=== PATIENT | female | born 1945 | race Caucasian/White ===

== ENCOUNTER 2017-05-18 09:17 | Inpatient (IN) ==
[2017-05-18] MEDS ORDERED: DILTIAZEM 50 MG/10 ML VIAL IV STA (10:02)
--- NOTE | 2017-05-18 10:05 | EKG Report ---
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
[2017-05-18 10:24] LABS: Apearance,Urine CLEAR (Clear); Bacteria,Urine Moderate /HPF (Few); Bilirubin,Urine Negative (Negative); Blood, Urine Negative (Negative); Glucose,Urine (UA) Negative (Negative); Ketones,Urine Negative (Negative); Mucus,Urine Occasional /LPF (Occasional); Nitrite,Urine Negative (Negative); Protein,Urine Negative; RBC,Urine <1 /HPF (0-4); Urine Color Yellow (Yellow); Urine Urobilinogen < 2.0 EU/DL (0.2-1.0); WBC,Urine 1 /HPF (0-6)
[2017-05-18 10:31] LABS: Barbiturates Screen,Urine Negative (Negative); Benzodiazepines Screen,Urine Negative (Negative); Cannabinoid Screen,Urine Negative (Negative); Opiate Screen,Urine Positive (Negative); Phencyclidine Screen,Urine Negative (Negative)
--- NOTE | 2017-05-18 10:45 | CT Report ---
History: Mental status changes Date: 05/18/2017 Study: CT head without contrast Comparison exam: May 15, [address] sections were obtained through the head without IV contrast. This CT exam was performed using one or more the following dose reduction techniques: Automated exposure control, adjustment of the MA and/or KV according to patient size, or use of iterative reconstruction technique. The ventricles are midline in position without evidence of hydrocephalus. There is mild diffuse cerebral atrophy. There is no mass or parenchymal hemorrhage. There is no gross CT evidence of acute cortical stroke. There is a small amount of ill-defined low density in the periventricular white matter without mass effect compatible with changes of small vessel disease. There is no extra-axial hematoma. There is mild distal carotid artery calcification. There is no acute abnormality of the calvarium. There is a very small left frontal scalp lipoma as before. Impression: No acute intracranial process compared to the previous study. Mild periventricular small vessel disease. PROCEDURE INTERPRETED AT [facility] DEPARTMENT OF RADIOLOGY Final Report Signed by: Dr. Yany Conde
[2017-05-18] MEDS ORDERED: NALOXONE 0.4 MG/ML VIAL IV STA (10:46)
[2017-05-18 10:47] LABS: Albumin 3.6 G/DL (3.4-5.0); Bilirubin,Total 0.7 MG/DL (0.2-1.0); Calcium 8.7 MG/DL (8.5-10.1); Magnesium 2.4 MG/DL (1.8-2.4); Osmolality,Calculated 281.4 MOS/KG (273-304); Total Protein 6.9 G/DL (6.4-8.3)
[2017-05-18] MEDS ORDERED: NALOXONE 0.4 MG/ML VIAL ONE (10:47)
--- NOTE | 2017-05-18 10:52 | XRay Report ---
History: Altered mental status Date: 05/18/2017 Study: Chest x-ray AP portable Comparison exam: May 15, 2016 There is stable mild cardiomegaly. There is no mediastinal mass. There is mild to moderate aortic arch calcification. The pulmonary vasculature is not engorged. Scattered emphysematous changes are noted in the lungs. There is some mild chronic reticular interstitial disease in the lung bases. There is no definite acute infiltrate. There is no layering pleural effusion. There is a stable pleural-based sessile area in the right upper hemithorax laterally which has been present since March 15, 2010 chest x-ray and is grossly similar in size. There is osteopenia and mild thoracic spondylosis. Impression: Chronic lung disease. No definite acute process. Stable sessile pleural thickening laterally in the right lung apex, unchanged since March 15, 2010 and therefore presumably benign PROCEDURE INTERPRETED AT [facility] DEPARTMENT OF RADIOLOGY Final Report Signed by: Dr. Yany Conde
[2017-05-18 11:06] LABS: Basophils # 0.1 10*3/uL (0.0-0.2); Basophils % 0.4 % (0.0-0.8); Eosinophils # 0.1 10*3/uL (0.0-0.87); Eosinophils % 0.7 % (0.00-10.9); Hematocrit 47.5 VOL% (35.7-47.0); Hemoglobin 16.2 GM/DL (12.0-16.0); Lymphocytes % 11.1 % (21.3-54.2); Mean Corpuscular HGB Conc 34.1 GM/DL (32-36); Mean Corpuscular Hemoglobin 30 PG (27-34); Mean Corpuscular Volume 87.8 FL (87-102); Mean Platelet Volume 9.2 FL (9.6-12.0); Monocytes % 5.5 % (1.7-12.7); Neutrophils # 13.9 10*3/uL (1.4-7.4); Neutrophils % 77.3 % (38.7-73.9); Platelet Count 251 T/CUMM (130-400); Red Blood Count 5.41 MC/CUMM (3.8-5.5); Red Cell Distribution Width 17.5 % (9.3-17.3)
--- NOTE | 2017-05-18 11:21 | Emergency Department Note ---
Rayshawn Stringer Brittany, am scribing for, and in the presence of, Francisco Javier Hidalgo MD 10:28. Gwen Stringer Phillip K, MD, personally performed the services described in this documentation, ascribed by Kendy Tabares in my presence, and it is both accurate and complete . Arrival - Arrival Chief Complaint: Altered Mental Status Stated Complaint: altered LOC ED Nursing Triage Note: Brought in by EMS-sent from [facility] for further evaluation of altered LOC-onset this morning. Staff reports patient "went unresponsive" while sitting in the break room this morning after receiving AM dose of [place]. EMS reports that patient was unresponsive upon their arrival, awakened after Narcan 0.8mg IV. Combative at time of triage. Mode of Arrival: Stretcher Limitations: Altered Mental Status Source: EMS Time Seen by Provider: 05/18/17 09:53 - History of Present Illness HPI Narrative: This will be limited secondary to pt's current mental status. This is a 71 y/o white female,who presents to the ED by EMS for further neurologic evaluation. Pt is a current resident of [facility]. Staff reports pt was out on a "weekend pass" with family and came back to the halfway 05/15. She became unresponsive earlier today after receiving her normal AM dose of [place]. EMS gave pt Narcan 0.8 IV. During exam and traige, pt is combative. Upon arrival to the ED, pt's accucheck is 97. There are no other complaints/pain in the ED at this time. Pt has a PMHx of HTN, depression, NIDDM, GERD, OA, anemia, degernerative disk disease, back/neck problems, and GI problems. Pt has had an EGD and total hip replacement. Pt has a family medical Hx of diabetes. Onset (ago): hour(s) (Started earlier this morning) Consistency: constant Severity: moderate Date of Last Menstrual Period: susan Allergies/Adverse Reactions: Allergies Allergy/AdvReac Type Severity Reaction Status Date / Time Sulfa (Sulfonamide Allergy Intermediate RASH Verified 04/02/15 11:53 Antibiotics) Home Medications: Home Medications Medication Instructions Recorded Confirmed Type Acetaminophen [Acetaminophen ER] 650 mg PO Q6H PRN 05/18/17 05/18/17 History Albuterol Neb [Proventil Neb] 2.5 mg RESP TX Q6HR 05/18/17 05/18/17 History Albuterol Sulfate [Proair HFA] 1 puff INH Q4H PRN 05/18/17 05/18/17 History Alendronate [Fosamax] 70 mg PO MO 05/18/17 05/18/17 History Beclomethasone 80 Mcg Inhaler 1 puff INH BID 05/18/17 05/18/17 History [Qvar 80 Mcg] Calcium (Carb)/Vit D 600-400 1 tablet PO BID 05/18/17 05/18/17 History [Caltrate 600 + D] Erythromycin Base [Erythromycin 1 drop BOTH EYES BEDTIME 05/18/17 05/18/17 History 0.5% Oph Oint] Esomeprazole Magnesium 40 mg PO BEDTIME 05/18/17 05/18/17 History [Esomeprazole] Ferrous Sulfate 325 mg PO BID 05/18/17 05/18/17 History HYDROcodone/ACETAMIN 5-325 [Deerfield 1 tablet PO BID PRN 05/18/17 05/18/17 History 5-325] HYDROcodone/ACETAMIN 5-325 [[place] 1 tablet PO Q6H 05/18/17 05/18/17 History 5-325] Ibuprofen Tab [Motrin Tab] 400 mg PO Q6H PRN 05/18/17 05/18/17 History Megestrol Acetate 400 mg PO 0800 05/18/17 05/18/17 History Melatonin 3 mg PO BEDTIME 05/18/17 05/18/17 History Menthol/Camphor [Icy Hot Advanced 1 applic TOP TID 05/18/17 05/18/17 History Relief Cream] Multivitamin with Minerals 1 each PO 0800 05/18/17 05/18/17 History [Multivitamins with Minerals] guaiFENesin LIQUID [Robitussin] 10 ml PO Q6H PRN 05/18/17 05/18/17 History predniSONE TAB [PredniSONE] 10 mg PO 0800 05/18/17 05/18/17 History Review of System - Review of System 12 point system: reviewed and no additional remarkable complaints except as stated - Review of System Neurological: Present: other (Altered LOC) Medical,Surgical,& Family Hx - Medical History Cardio: History of: Hypertension Psychological: History of: Depression Neurology: No history of: Seizures HEENT: History of: Eye Problem (ULCERS LEFT EYE) Endocrine: History of: Diabetes Mellitus (NIDDM) Respiratory: History of: Bronchitis, COPD, Pneumonia Gastrointestinal: History of: GERD, GI Problems (dysphagia, hx of ulcers) Musculoskeletal: History of: Back/Neck Problems, Degenerative Disk Disease, Osteoporosis Hematology: History of: Anemia - Surgical History Abdominal Surgeries: Surgical HX of: EGD (last egd and dil 08/10) Reproductive Surgeries: Patient denies;: Hysterectomy Orthopedic Surgeries: Surgical HX of;: Total Hip Replacement (HIP) - Family History Family History: Reports;: Family Diabetes - Social History Smoking Status: Unknown if ever smoked Frequency of Alcohol Use: Unknown Type of Drug Use: Unknown Exam Vital Signs: Vital Signs Temperature 97.6 F 05/18/17 09:26 Pulse Rate 146 H 05/18/17 09:26 Respiratory Rate 28 H 05/18/17 09:28 Blood Pressure 195/95 05/18/17 09:26 O2 Sat by Pulse Oximetry 99 05/18/17 09:26 - General General appearance: alert - Head Head exam: Present: atraumatic, normocephalic, normal inspection - Eye Eye exam: Present: PERRL - ENT ENT exam: Present: normal exam, normal oropharynx, mucous membranes moist, TM's normal bilaterally, normal external ear exam - Neck Neck exam: Present: normal inspection, full ROM, trachea midline. Absent: tenderness, meningismus, lymphadenopathy, thyromegaly - Chest Chest inspection: Present: normal inspection, symmetric chest wall rise. Absent : tenderness, rash, abscess - Respiratory Respiratory exam: Present: rales (Rales in the right base). Absent: respiratory distress, rhonchi, stridor, wheezes - Cardiovascular Cardiovascular exam: Present: regular rate, normal rhythm, normal heart sounds. Absent: murmur, rubs, gallop, clicks, JVD - Abdominal Exam Abdominal exam: Present: soft, normal bowel sounds. Absent: distention, tenderness, guarding, rebound, rigidity - Rectal Exam Rectal exam: Present: deferred - Extremities Exam Extremities exam: Present: normal inspection, full ROM, normal capillary refill , other (Moves all extremities). Absent: tenderness, pedal edema, joint swelling, calf tenderness - Back Exam Back exam: Present: normal inspection, full ROM. Absent: tenderness, muscle spasm, rashes - Neurological Exam Neurological exam: Present: alert. Absent: motor sensory deficit (Moves all four extremities but will not follow commands) - Skin Skin exam: Present: warm, dry, intact, normal color. Absent: rash, cyanosis, diaphoresis, erythema, pallor, mottled Course Course Narrative: Patient discussed with the hospitalist. Results - Labs CBC & BMP: 05/18/17 11:00 05/18/17 09:48 Lab Results: I have reviewed the patients labs Labs: Laboratory Tests 05/18/17 05/18/17 10:18 10:18 Urine Color Yellow Urine Appearance Clear Urine pH 6.0 Ur Specific Idamay 1.010 Urine Protein Negative Urine Glucose (UA) Negative Urine Ketones Negative Urine Blood Negative Urine Nitrate Negative Urine Bilirubin Negative Urine Urobilinogen < 2.0 H Urine Leukocytes Negative Urine RBC <1 Urine WBC 1 Urine Bacteria Moderate Urine Mucus Occasional Ur Culture Indicated? Not indicated Urine Opiates Screen Positive H Ur Barbiturates Screen Negative Ur Phencyclidine Scrn Negative U Amphetamine/Methamph Negative U Benzodiazepines Scrn Negative U Cocaine Metab Screen Negative U Cannabinoids Screen Negative Laboratory Tests 05/18/17 05/18/17 05/18/17 09:48 10:18 10:18 Sodium 140 Potassium 4.0 Chloride 105 Carbon Dioxide 25 Anion Gap 14.0 BUN 20 H Creatinine 0.70 GFR Calculation 69 BUN/Creatinine Ratio 28.00 H Glucose 96 Calculated Osmolality 281.4 Calcium 8.7 Magnesium 2.4 Total Bilirubin 0.70 AST 22 ALT 31 Alkaline Phosphatase 104 Total Protein 6.9 Albumin 3.6 Globulin 3.3 Albumin/Globulin Ratio 1.0 L Urine Color Yellow Urine Appearance Clear Urine pH 6.0 Ur Specific Idamay 1.010 Urine Protein Negative Urine Glucose (UA) Negative Urine Ketones Negative Urine Blood Negative Urine Nitrate Negative Urine Bilirubin Negative Urine Urobilinogen < 2.0 H Urine Leukocytes Negative Urine RBC <1 Urine WBC 1 Urine Bacteria Moderate Urine Mucus Occasional Ur Culture Indicated? Not indicated Urine Opiates Screen Positive H Ur Barbiturates Screen Negative Ur Phencyclidine Scrn Negative U Amphetamine/Methamph Negative U Benzodiazepines Scrn Negative U Cocaine Metab Screen Negative U Cannabinoids Screen Negative - EKG EKG results: interpreted by SPEEDYD (Sinus tachycardia) - Diagnostic Findings Procedure: Chest x-ray: report reviewed by me (Chronic lung disease. No definite acute process. Stable sessile pleural thickening laterally in the right lung apex, unchanged since March 15, 2010 and therefore presumably bengin. ), CT: report reviewed by me, pending (Head CT: No acute intracrainal process compared to the previous study. Mild periventricular small vessel disease. ) Disposition Clinical Impression: Altered mental status, Mild dehydration, Urinary tract infection Case discussed with: patient, patient's family Disposition: Still a Patient Condition: Guarded Additional Instructions: Admit to the hospitalist.
[2017-05-18 11:27] LABS: Band Neutrophils 1 % (0-10); Lymphocytes 9 % (20-55); Metamyelocytes 1 %; Segmented Neutrophils 82 % (50-85); Total Cells Counted 100
[2017-05-18 11:28] LABS: Hypochromasia 1+; Microcytosis 1+
--- NOTE | 2017-05-18 13:44 | Hospitalist History & Physical ---
<Jordan Jackson - Last Filed: 05/18/17 14:38> Assessment and Plan - Time spent with patient Time spent with patient: Less than 30 minutes (1) Altered mental status Status: Acute Assessment and plan: His CT is negative. Patient reportedly has been altered and unresponsive since her a.m. dose of [place]. She was treated with 0.8 mg of Narcan and became combative. Patient remains noncommunicative and in 2 point restraints. We will admit her for observation and further treatment. Consider neurology consult. Current Visit: No (2) Dehydration Status: Acute Assessment and plan: Aggressive IV fluid resuscitation. Current Visit: No (3) Leukocytosis Status: Acute Assessment and plan: WBC 18. Etiology is unclear. Urine culture was not indicated however we are checking a blood culture. We will start empiric broad-spectrum antibiotics. Current Visit: Yes (4) COPD with emphysema Status: Chronic Current Visit: No History of Present Illness Chief complaint: AMS History of present illness: Ms. Barrow is a 71 year old female with a past medical history of hypertension, depression, diabetes mellitus, GERD, osteoarthritis, anemia and degenerative joint disease who presents to the emergency room via EMS for further evaluation of altered mental status. Patient is noncommunicative and history is limited due to her current mental status. Per hospital records, patient is a current resident of [facility] and was reportedly out on a "weekend pass" with family this past weekend. Patient returned to the residential on Monday apparently in her normal state. However, today the patient became unresponsive after taking her usual dose of [place]. EMS was called and the patient was treated with 0.8 mg IV in route to the hospital. Patient reportedly became combative and is in two-point restraints in the emergency room. Lab values are as follows: WBC 18, hemoglobin 16.2, hematocrit 47.5, sodium 147 , potassium 4.0, chloride 105, BUN 20, creatinine 0.70, glucose 96. Urinalysis is unremarkable. Urine drug screen did come back positive for opiates. Chest x -ray chronic lung disease however no definite acute process. Head CT shows no acute intracranial process. This case has been discussed with Dr. Hidalgo, ER physician, and Dr. Raymond, admitting physician patient will be admitted for further evaluation and treatment. Home Medications Medication Instructions Recorded Confirmed Type Acetaminophen [Acetaminophen ER] 650 mg PO Q6H PRN 05/18/17 05/18/17 History Albuterol Neb [Proventil Neb] 2.5 mg RESP TX Q6HR 05/18/17 05/18/17 History Albuterol Sulfate [Proair HFA] 1 puff INH Q4H PRN 05/18/17 05/18/17 History Alendronate [Fosamax] 70 mg PO MO 05/18/17 05/18/17 History Beclomethasone 80 Mcg Inhaler 1 puff INH BID 05/18/17 05/18/17 History [Qvar 80 Mcg] Calcium (Carb)/Vit D 600-400 1 tablet PO BID 05/18/17 05/18/17 History [Caltrate 600 + D] Erythromycin Base [Erythromycin 1 drop BOTH EYES BEDTIME 05/18/17 05/18/17 History 0.5% Oph Oint] Esomeprazole Magnesium 40 mg PO BEDTIME 05/18/17 05/18/17 History [Esomeprazole] Ferrous Sulfate 325 mg PO BID 05/18/17 05/18/17 History HYDROcodone/ACETAMIN 5-325 [[place] 1 tablet PO BID PRN 05/18/17 05/18/17 History 5-325] HYDROcodone/ACETAMIN 5-325 [[place] 1 tablet PO Q6H 05/18/17 05/18/17 History 5-325] Ibuprofen Tab [Motrin Tab] 400 mg PO Q6H PRN 05/18/17 05/18/17 History Megestrol Acetate 400 mg PO 0800 05/18/17 05/18/17 History Melatonin 3 mg PO BEDTIME 05/18/17 05/18/17 History Menthol/Camphor [Icy Hot Advanced 1 applic TOP TID 05/18/17 05/18/17 History Relief Cream] Multivitamin with Minerals 1 each PO 0800 05/18/17 05/18/17 History [Multivitamins with Minerals] guaiFENesin LIQUID [Robitussin] 10 ml PO Q6H PRN 05/18/17 05/18/17 History predniSONE TAB [PredniSONE] 10 mg PO 0800 05/18/17 05/18/17 History Allergies Allergy/AdvReac Type Severity Reaction Status Date / Time Sulfa (Sulfonamide Allergy Intermediate RASH Verified 04/02/15 11:53 Antibiotics) Medical,Surgical,& Family Hx - Medical History Cardio: History of: Hypertension Psychological: History of: Depression Neurology: No history of: Seizures HEENT: History of: Eye Problem (ULCERS LEFT EYE) Endocrine: History of: Diabetes Mellitus (NIDDM) Respiratory: History of: Bronchitis, COPD, Pneumonia Gastrointestinal: History of: GERD, GI Problems (dysphagia, hx of ulcers) Musculoskeletal: History of: Back/Neck Problems, Degenerative Disk Disease, Osteoporosis Hematology: History of: Anemia - Surgical History Abdominal Surgeries: Surgical HX of: EGD (last egd and dil 08/10) Reproductive Surgeries: Patient denies;: Hysterectomy Orthopedic Surgeries: Surgical HX of;: Total Hip Replacement (HIP) - Family History Family History: Reports;: Family Diabetes - Social History Smoking Status: Unknown if ever smoked Frequency of Alcohol Use: Unknown Type of Drug Use: Unknown Marital Status: Lives With:: skilled nursing Functional capacity: independent ambulation ROS unobtainable: due to mental status Exam - Constitutional Vitals: Period Temp Pulse Resp BP Sys/Lockhart Pulse Ox Last 24 Hr 97.6 F-97.6 F 124-146 21-28 171-195/85-95 90-99 General appearance: under weight, disheveled - Eye Eye exam: Present: EOMI Pupils: Present: BRADLEY - Respiratory Respiratory exam: Present: decreased breath sounds, rales, rhonchi - Cardiovascular Cardiovascular exam: Present: irregular rhythm, tachycardia - GI/Abdominal GI/Abdominal exam: Present: normal bowel sounds. Absent: ascites, tenderness, rebound - Extremities Exam Extremities exam: Present: normal inspection, normal capillary refill, full ROM - Neurological Exam Neurological exam: Present: alert, altered - Psychiatric Psychiatric exam: Present: agitated - Skin Skin exam: Present: warm, dry Results - Labs CBC & BMP: 05/18/17 11:00 05/18/17 09:48 Lab Results: I have reviewed the past 24 hour labs - EKG EKG results: interpreted by ERMD - Diagnostic Findings Procedure: Chest x-ray: image reviewed by me, report reviewed by me, CT: image reviewed by me, report reviewed by me <Ashok Raymond - Last Filed: 05/18/17 18:53> History of Present Illness History of present illness: Patient seen and examined independently of MINDA Jackson. Agree with history, assessment and plan as documented. No family present. Patient unable to answer any questions. Patient has a leukocytosis. UA unimpressive. Blood cultures pending. Exam - Constitutional Vitals: Period Temp Pulse Resp BP Sys/Lockhart Pulse Ox Last 24 Hr 97.6 F-98.2 F 104-150 19-28 127-195/62-95 90-99 Results - Labs CBC & BMP: 05/18/17 11:00 05/18/17 09:48
[2017-05-18] MEDS ORDERED: LACTULOSE 20 GM/30 ML UDCUP PO PRN (14:15)
[2017-05-18] MEDS ORDERED: GLUCAGON 1 MG VIAL IM PRN (14:15)
[2017-05-18] MEDS ORDERED: MORPHINE 2 MG/1 ML SYRINGE IV PRN (14:15)
[2017-05-18] MEDS ORDERED: ONDANSETRON 4 MG/2 ML VIAL IV PRN (14:15)
[2017-05-18] MEDS ORDERED: DEXTROSE 50% 25 GM/50 ML VIAL IV PRN (14:15)
[2017-05-18] MEDS ORDERED: ACETAMINOPHEN 325 MG TABLET PO PRN (14:15)
[2017-05-18] MEDS ORDERED: DOCUSATE SODIUM 100 MG CAPSULE PO PRN (14:15)
[2017-05-18] MEDS: SODIUM CHLORIDE 0.9% 1,000 ML IV SCH (17:57)
[2017-05-18] MEDS: INSULIN LISPRO 100 UNIT/ML SUBCUT SCH ×2 (17:58→21:45)
[2017-05-18] MEDS ORDERED: ZALEPLON 5 MG CAPSULE PO PRN (21:00)
[2017-05-19] MEDS: SODIUM CHLORIDE 0.9% 1,000 ML IV SCH ×5 (02:43→18:15)
[2017-05-19 06:03] LABS: Basophils # 0.1 10*3/uL (0.0-0.2); Basophils % 0.4 % (0.0-0.8); Eosinophils # 0.2 10*3/uL (0.0-0.87); Hematocrit 42.5 VOL% (35.7-47.0); Hemoglobin 14.4 GM/DL (12.0-16.0); Immature Granulocytes % 3.3 %; Immature Granulocytes Absolute 0.52 #; Lymphocytes # 2.1 10*3/uL (1.4-4.0); Lymphocytes % 13.3 % (21.3-54.2); Mean Corpuscular HGB Conc 33.9 GM/DL (32-36); Mean Corpuscular Hemoglobin 30 PG (27-34); Mean Platelet Volume 9.5 FL (9.6-12.0); Monocytes # 0.7 10*3/uL (0.11-0.8); Monocytes % 4.7 % (1.7-12.7); Neutrophils # 12.1 10*3/uL (1.4-7.4); Neutrophils % 77.3 % (38.7-73.9); Platelet Count 263 T/CUMM (130-400); Red Blood Count 4.83 MC/CUMM (3.8-5.5); Red Cell Distribution Width 17.6 % (9.3-17.3); White Blood Count 15.7 T/CUMM (4-12)
[2017-05-19 06:22] LABS: Potassium 3.9 MMOL/L (3.5-5.1)
[2017-05-19 06:39] LABS: Band Neutrophils 2 % (0-10); Eosinophils 1 % (0-10); Hypochromasia 1+; Lymphocytes 10 % (20-55); Microcytosis 1+; Segmented Neutrophils 84 % (50-85); Total Cells Counted 100
[2017-05-19 06:40] LABS: Platelet Estimate Normal
--- NOTE | 2017-05-19 07:04 | EKG Report ---
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
[2017-05-19] MEDS: INSULIN LISPRO 100 UNIT/ML SUBCUT SCH ×4 (07:49→20:23)
[2017-05-19] MEDS: PANTOPRAZOLE 40 MG TABLET PO SCH (08:31)
--- NOTE | 2017-05-19 15:20 | Hospitalist Progress Note ---
Assessment and Plan (1) Altered mental status Status: Acute Assessment and plan: Now resolved Most likely due to medications Does have a leukocytosis, but no overt sign of infection Current Visit: Yes (2) Leukocytosis Status: Acute Assessment and plan: Improving Current Visit: Yes (3) COPD with emphysema Status: Chronic Current Visit: No (4) Dehydration Status: Resolved Current Visit: No Hospitalist: Subjective Interval history: No acute events overnight. Patient is awake and alert today. Seen sitting in bed drinking coffee. She is oriented x2. Will plan for discharge back to [facility] tomorrow. Exam - Constitutional Vitals: Period Temp Pulse Resp BP Sys/Lockhart Pulse Ox Last 24 Hr 97.0 F-98.5 F 75-108 18-20 130-144/74-87 93-99 General appearance: normal weight - Head Head exam: Present: normocephalic, atraumatic - Eye Eye exam: Present: EOMI Pupils: Present: BRADLEY - ENT ENT exam: Present: normal exam - Neck Neck exam: Present: normal inspection - Respiratory Respiratory exam: Present: clear to auscultation bilaterally. Absent: rhonchi, wheezes - Cardiovascular Cardiovascular exam: Present: regular rate and rhythm - GI/Abdominal GI/Abdominal exam: Present: normal bowel sounds, soft. Absent: tenderness, rebound - Extremities Exam Extremities exam: Present: normal inspection - Back Exam Back exam: Present: normal inspection - Neurological Exam Neurological exam: Present: alert, oriented X3 - Psychiatric Psychiatric exam: Present: normal affect, normal mood - Skin Skin exam: Present: warm, intact Results - Labs CBC & BMP: 05/19/17 05:34 05/19/17 05:34
[2017-05-19] MEDS ORDERED: ALBUTEROL 2.5 MG/3 ML NEB RESP TX PRN (22:26)
[2017-05-19] MEDS ORDERED: ALBUTEROL/IPRATROPIUM 3 ML NEB RESP TX PRN (23:08)
[2017-05-20] MEDS: SODIUM CHLORIDE 0.9% 1,000 ML IV SCH ×2 (01:55→05:40)
[2017-05-20 02:27] LABS: Basophils % 0.2 % (0.0-0.8); Eosinophils # 0.1 10*3/uL (0.0-0.87); Eosinophils % 0.5 % (0.00-10.9); Hematocrit 39.2 VOL% (35.7-47.0); Hemoglobin 13.1 GM/DL (12.0-16.0); Lymphocytes # 1.2 10*3/uL (1.4-4.0); Mean Corpuscular HGB Conc 33.4 GM/DL (32-36); Mean Corpuscular Hemoglobin 30 PG (27-34); Mean Corpuscular Volume 88.9 FL (87-102); Mean Platelet Volume 9.4 FL (9.6-12.0); Monocytes # 0.6 10*3/uL (0.11-0.8); Monocytes % 3.9 % (1.7-12.7); Neutrophils % 85.4 % (38.7-73.9); Platelet Count 232 T/CUMM (130-400); Red Blood Count 4.41 MC/CUMM (3.8-5.5); Red Cell Distribution Width 17.2 % (9.3-17.3); White Blood Count 15.2 T/CUMM (4-12)
[2017-05-20 02:52] LABS: Calcium 7.3 MG/DL (8.5-10.1); Potassium 3.8 MMOL/L (3.5-5.1)
[2017-05-20] MEDS: INSULIN LISPRO 100 UNIT/ML SUBCUT SCH ×2 (08:19→12:22)
[2017-05-20] MEDS: PANTOPRAZOLE 40 MG TABLET PO SCH (08:26)
--- NOTE | 2017-05-20 09:38 | Discharge Summary ---
<Jordan Jackson - Last Filed: 05/20/17 09:29> Hospital Course - Hospital Course Hospital Course: Ms. Barrow is a 71-year-old white female snf resident who was admitted to the [place] ED on 05/18/2017 further evaluation of altered mental status. On admission, the patient was combative and noncommunicative. half-way records reported that the patient had become unresponsive after taking her usual dose of [place] on the morning of the . Patient was given IV Narcan both in route to the hospital and in the emergency room. On admission, the patient was found to have leukocytosis with a white blood count of 18. Urinalysis was unremarkable. Urine drug screen was positive for opiates. Chest x-ray and head CT on admission were unimpressive with no definite signs of acute infarct or infection. Patient was admitted to the hospital medicine service for further evaluation and treatment. She was given IV fluids and simply allowed to rest while hospitalized. Her white count is decreasing without any overt sign of infection, however her altered mental status has resolved and she is oriented 2. It appears that her change in mental status was medically induced. She has reached maximum benefit from this hospitalization and is stable for discharge at this time. She will be discharged back to her snf. Diagnosis - Discharge Diagnosis (1) Altered mental status Status: Acute (2) Dehydration Status: Acute (3) Leukocytosis Status: Acute (4) COPD with emphysema Status: Chronic Discharge Plan - Discharge Data Disposition: Disch/Xfer to Snf - Discharge Medications Continue Esomeprazole Magnesium [Esomeprazole] 40 mg PO BEDTIME Ferrous Sulfate 325 mg PO BID Calcium (Carb)/Vit D 600-400 [Caltrate 600 + D] 1 tablet PO BID Multivitamin with Minerals [Multivitamins with Minerals] 1 each PO 0800 Albuterol Neb [Proventil Neb] 2.5 mg RESP TX Q6HR Melatonin 3 mg PO BEDTIME Megestrol Acetate 400 mg PO 0800 Alendronate [Fosamax] 70 mg PO MO guaiFENesin LIQUID [Robitussin] 10 ml PO Q6H PRN PRN Reason: Cough Albuterol Sulfate [Proair HFA] 1 puff INH Q4H PRN PRN Reason: Shortness Of Breath/Wheezing HYDROcodone/ACETAMIN 5-325 [[place] 5-325] 1 tablet PO BID PRN PRN Reason: Pain Ibuprofen Tab [Motrin Tab] 400 mg PO Q6H PRN PRN Reason: Pain Menthol/Camphor [Icy Hot Advanced Relief Cream] 1 applic TOP TID Beclomethasone 80 Mcg Inhaler [Qvar 80 Mcg] 1 puff INH BID predniSONE TAB [PredniSONE] 10 mg PO 0800 Acetaminophen [Acetaminophen ER] 650 mg PO Q6H PRN PRN Reason: Pain Erythromycin Base [Erythromycin 0.5% Oph Oint] 1 drop BOTH EYES BEDTIME Discontinued HYDROcodone/ACETAMIN 5-325 [[place] 5-325] 1 tablet PO Q6H - Follow Up or Referral - Forms/Instructions Exam - Constitutional Vitals: Period Temp Pulse Resp BP Sys/Lockhart Pulse Ox Last 24 Hr 97.7 F-99.7 F 75-112 18-27 113-141/62-75 94-99 Discharge Results Procedures and tests throughout hospitalization: Pending Orders 05/18/17 15:38 Blood Culture Stat 05/21/17 04:00 Basic Metabolic Panel IN AM Comp Blood Count Auto Diff IN AM Labs on day of discharge: Labs from last 24 hours 05/20/17 05/20/17 05/20/17 07:52 01:57 01:57 WBC 15.2 H RBC 4.41 Hgb 13.1 Hct 39.2 MCV 88.9 MCH 30 MCHC 33.4 RDW 17.2 Plt Count 232 MPV 9.4 L Neut % (Auto) 85.4 H Lymph % (Auto) 8.0 L Gilliam % (Auto) 3.9 Eos % (Auto) 0.5 Baso % (Auto) 0.2 Neut # (Auto) 13.0 H Lymph # (Auto) 1.2 L Gilliam # (Auto) 0.6 Eos # (Auto) 0.1 Baso # (Auto) 0.0 Immature Gran % 2.0 Nucleated RBC % 0.0 Immature Gran # 0.30 Nucleated RBCs # 0.00 Sodium 143 Potassium 3.8 Chloride 112 H Carbon Dioxide 22 Anion Gap 12.8 BUN 11 Creatinine 0.40 L GFR Calculation 84 BUN/Creatinine Ratio 27.00 H Glucose 104 POC Glucose 86 Calculated Osmolality 283.0 Calcium 7.3 L 05/19/17 05/19/17 05/19/17 19:17 15:22 13:16 WBC RBC Hgb Hct MCV MCH MCHC RDW Plt Count MPV Neut % (Auto) Lymph % (Auto) Gilliam % (Auto) Eos % (Auto) Baso % (Auto) Neut # (Auto) Lymph # (Auto) Gilliam # (Auto) Eos # (Auto) Baso # (Auto) Immature Gran % Nucleated RBC % Immature Gran # Nucleated RBCs # Sodium Potassium Chloride Carbon Dioxide Anion Gap BUN Creatinine GFR Calculation BUN/Creatinine Ratio Glucose POC Glucose 126 H 87 93 Calculated Osmolality Calcium Preliminary micro results at discharge 05/18/17 15:38 Blood Culture - Preliminary Blood No growth at 1 day 05/18/17 15:38 Blood Culture - Preliminary Blood No growth at 1 day DS: Provider Date of admission: 05/18/17 12:41 Primary care physician: . No PCP Attending physician on admission: Ashok Raymond MD Discharging clinician: Jordan PERLA Expected date of discharge: 05/20/17 <Ashok Raymond - Last Filed: 05/20/17 10:01> Hospital Course - Time spent with patient Time with patient DS: Less than 30 minutes (25) Diagnosis - Discharge Diagnosis (1) Altered mental status Status: Resolved (2) Leukocytosis Status: Acute (3) COPD with emphysema Status: Chronic (4) Dehydration Status: Resolved Discharge Plan - Discharge Data Condition at Discharge: Stable Discharge Diet: advance to your usual diet Activity: increase activity as tolerated Hygiene: no restrictions Weight Bearing at Discharge: weight bear as tolerated Driving: no restrictions Contact your physician if you experience:: fever over 101 Exam - Constitutional General appearance: normal weight - Head Head exam: Present: normocephalic, atraumatic - Eye Eye exam: Present: EOMI Pupils: Present: BRADLEY - ENT ENT exam: Present: normal exam - Neck Neck exam: Present: normal inspection - Respiratory Respiratory exam: Present: clear to auscultation bilaterally - Cardiovascular Cardiovascular exam: Present: regular rate and rhythm - GI/Abdominal GI/Abdominal exam: Present: normal bowel sounds, soft. Absent: tenderness, rebound - Extremities Exam Extremities exam: Present: normal inspection - Back Exam Back exam: Present: normal inspection - Neurological Exam Neurological exam: Present: alert, oriented X3 - Psychiatric Psychiatric exam: Present: normal affect, normal mood - Skin Skin exam: Present: warm, intact
[2017-05-20 10:03] VITALS: BP 138/78
== END 2017-05-20 12:25 | DRG 948 ==
LOC: EDBD → EDUNIT# → N.ED 09:17 → N.EDINP 12:41 → N.5E 15:07
PROVIDERS: ADMIT Internal Medicine; ATTEND Internal Medicine

== ENCOUNTER 2020-03-29 22:44 | Inpatient (IN) ==
[2020-03-29] MEDS ORDERED: AZITHROMYCIN INJ 500 MG in SODIUM CHLORIDE 0.9% 250 ML IV STA (23:33)
[2020-03-29] MEDS ORDERED: PIPERACILLIN/TAZOBACTAM 3,375 MG in SODIUM CHLORIDE 0.9% 100 ML IV STA (23:33)
[2020-03-29] MEDS ORDERED: methylPREDNISolone SOD SUC 125 MG/2 ML VIAL IV STA (23:33)
[2020-03-29] MEDS ORDERED: SODIUM CHLORIDE 0.9% 500 ML IV STA (23:33)
[2020-03-29] MEDS ORDERED: ONDANSETRON 4 MG/2 ML VIAL IV STA (23:33)
[2020-03-29 23:42] LABS: Basophils # 0.2 10*3/uL (0.0-0.2); Basophils % 0.8 % (0.0-0.8); Hemoglobin 13.8 GM/DL (12.0-16.0); Immature Granulocytes % 5.4 %; Lymphocytes # 1.2 10*3/uL (1.4-4.0); Lymphocytes % 6.4 % (21.3-54.2); Mean Corpuscular HGB Conc 32.9 GM/DL (32-36); Mean Corpuscular Volume 89.2 FL (87-102); Mean Platelet Volume 9.3 FL (9.6-12.0); Monocytes % 5.4 % (1.7-12.7); Platelet Count 481 T/CUMM (130-400); Red Blood Count 4.71 MC/CUMM (3.8-5.5); Red Cell Distribution Width 13.9 % (9.3-17.3); White Blood Count 18.6 T/CUMM (4-12)
[2020-03-29 23:52] LABS: PT Patient Result 10.6 SECS (9.8-11.9)
[2020-03-30 00:14] LABS: Albumin 2.3 G/DL (3.4-5.0); Bilirubin,Total 0.5 MG/DL (0.2-1.0); Calcium 9.1 MG/DL (8.5-10.1); Ferritin 2469.4 ng/ml (8-252); Osmolality,Calculated 266.5 MOS/KG (273-304); Total Protein 6.3 G/DL (6.4-8.3)
[2020-03-30 01:01] LABS: Band Neutrophils 2 % (0-10); Lymphocytes 7 % (20-55); Platelet Estimate Increased; Segmented Neutrophils 84 % (50-85); Total Cells Counted 100
[2020-03-30 01:02] LABS: Hypochromasia Slight; Microcytosis 1+
[2020-03-30 01:03] LABS: Stomatocytes Slight
[2020-03-30 02:03] LABS: Amorphous Crystals,Urine Occasional /HPF (Few); Apearance,Urine CLOUDY (Clear); Bacteria,Urine Many /HPF (Few); Bilirubin,Urine Small mg/dL (Negative); Blood, Urine Small mg/dL (Negative); Glucose,Urine (UA) Negative (Negative); Ketones,Urine 5 mg/dL (Negative); Nitrite,Urine Negative (Negative); Protein,Urine 30 MG/DL; Squamous Epithelial Cell,Urine Occasional /HPF (0-10); Urine Color Amber (Yellow); Urine Specific Gravity 1.017 (1.001-1.035); WBC,Urine 282 /HPF (0-6)
[2020-03-30] MEDS ORDERED: MAGNESIUM SULF RIDER 4 GM in PREMIX 1 EACH IV PRN (06:31)
[2020-03-30] MEDS ORDERED: MAGNESIUM SULF RIDER 2 GM in PREMIX 1 EACH IV PRN (06:31)
[2020-03-30] MEDS ORDERED: DOCUSATE SODIUM 100 MG CAPSULE PO PRN (06:31)
[2020-03-30] MEDS ORDERED: ONDANSETRON 4 MG/2 ML VIAL IV PRN (06:31)
[2020-03-30] MEDS: ZINC SULFATE 220 MG CAPSULE PO SCH (09:05)
[2020-03-30] MEDS: ENOXAPARIN 40 MG/0.4 ML SYRINGE SUBCUT SCH (09:05)
[2020-03-30] MEDS: PIPERACILLIN/TAZOBACTAM 3,375 MG in SODIUM CHLORIDE 0.9% 100 ML IV SCH ×2 (12:20→20:50)
[2020-03-30] MEDS: ACETAMINOPHEN 325 MG TABLET PO PRN (18:22)
[2020-03-31] MEDS: PIPERACILLIN/TAZOBACTAM 3,375 MG in SODIUM CHLORIDE 0.9% 100 ML IV SCH ×2 (03:44→12:00)
[2020-03-31] MEDS: AZITHROMYCIN 250 MG TABLET PO SCH (08:24)
[2020-03-31] MEDS: ENOXAPARIN 40 MG/0.4 ML SYRINGE SUBCUT SCH (08:24)
[2020-03-31 08:29] LABS: Basophils # 0.1 10*3/uL (0.0-0.2); Basophils % 0.5 % (0.0-0.8); Hemoglobin 12.7 GM/DL (12.0-16.0); Immature Granulocytes % 7.2 %; Immature Granulocytes Absolute 1.56 #; Lymphocytes # 1.4 10*3/uL (1.4-4.0); Lymphocytes % 6.5 % (21.3-54.2); Mean Corpuscular HGB Conc 32.6 GM/DL (32-36); Mean Corpuscular Volume 91.1 FL (87-102); Mean Platelet Volume 9.3 FL (9.6-12.0); Neutrophils % 79.8 % (38.7-73.9); Platelet Count 534 T/CUMM (130-400); Red Blood Count 4.28 MC/CUMM (3.8-5.5); Red Cell Distribution Width 13.9 % (9.3-17.3); White Blood Count 21.5 T/CUMM (4-12)
[2020-03-31 08:49] LABS: Band Neutrophils 1 % (0-10); Hypochromasia Slight; Lymphocytes 4 % (20-55); Microcytosis 1+; Platelet Estimate Increased; Segmented Neutrophils 90 % (50-85); Total Cells Counted 100
[2020-03-31 09:03] LABS: Calcium 8.6 MG/DL (8.5-10.1); Osmolality,Calculated 268.2 MOS/KG (273-304)
[2020-03-31] MEDS: ACETAMINOPHEN 325 MG TABLET PO PRN ×2 (12:57→16:34)
[2020-04-01] MEDS: traMADol 50 MG TABLET PO PRN ×3 (00:30→10:32)
[2020-04-01] MEDS: PIPERACILLIN/TAZOBACTAM 3,375 MG in SODIUM CHLORIDE 0.9% 100 ML IV SCH ×2 (01:11→06:52)
[2020-04-01] MEDS: AZITHROMYCIN 250 MG TABLET PO SCH (09:43)
[2020-04-01] MEDS: ENOXAPARIN 40 MG/0.4 ML SYRINGE SUBCUT SCH (09:43)
[2020-04-01] MEDS: ZINC SULFATE 220 MG CAPSULE PO SCH (09:43)
[2020-04-01 15:01] VITALS: BP 159/80
[2020-04-01] MEDS ORDERED: CEFUROXIME 500 MG TABLET PO SCH (21:00)
== END 2020-04-01 16:38 | DRG 177 ==
LOC: EDBD → EDUNIT# → N.ED 22:44 → N.EDINP 03-30 04:26 → N.2W 03-30 04:51
PROVIDERS: ADMIT Internal Medicine; ATTEND Internal Medicine

== ENCOUNTER 2021-11-22 08:26 | Inpatient (IN) ==
[2021-11-22] MEDS ORDERED: SODIUM CHLORIDE 0.9% 1,000 ML IV STA (08:41)
[2021-11-22] MEDS ORDERED: PANTOPRAZOLE 40 MG VIAL IV STA (08:41)
[2021-11-22] MEDS ORDERED: ONDANSETRON 4 MG/2 ML VIAL IV STA (08:41)
[2021-11-22 09:35] LABS: Basophils # 0.1 10*3/uL (0.0-0.2); Basophils % 0.2 % (0.0-0.8); Eosinophils % 0.1 % (0.00-10.9); Hemoglobin 10.4 GM/DL (12.0-16.0); Immature Granulocytes % 1.9 %; Immature Granulocytes Absolute 0.57 #; Lymphocytes # 0.6 10*3/uL (1.4-4.0); Lymphocytes % 1.8 % (21.3-54.2); Mean Corpuscular HGB Conc 31.5 GM/DL (32-36); Mean Corpuscular Volume 90.4 FL (87-102); Mean Platelet Volume 10.7 FL (9.6-12.0); Monocytes % 3.6 % (1.7-12.7); NRBC # 0.02 10*3/uL; Neutrophils % 92.4 % (38.7-73.9); Platelet Count 422 T/CUMM (130-400); Red Blood Count 3.65 MC/CUMM (3.8-5.5); Red Cell Distribution Width 16.2 % (9.3-17.3); White Blood Count 30.1 T/CUMM (4-12)
[2021-11-22 09:49] LABS: INR 1.2; PT Patient Result 13.7 SECS (10.5-12.0); Partial Thromboplastin Time 30.1 SECS (23.8-32.1)
[2021-11-22 09:55] LABS: Band Neutrophils 18 % (0-10); Lymphocytes 3 % (20-55); Metamyelocytes 1 %; Platelet Estimate Normal; Segmented Neutrophils 75 % (50-85); Total Cells Counted 100
[2021-11-22 09:56] LABS: Anisocytosis 2+; Macrocytosis Slight; Polychromasia Slight
[2021-11-22 10:07] LABS: Albumin 2.3 G/DL (3.4-5.0); Bilirubin,Total 0.8 MG/DL (0.20-1.00); Calcium 9.2 MG/DL (8.5-10.1); Osmolality,Calculated 276.4 MOS/KG (273-304); Potassium 4.3 MMOL/L (3.5-5.1); Total Protein 5.2 G/DL (6.4-8.2)
[2021-11-22] MEDS ORDERED: hydrALAZINE 20 MG/1 ML VIAL IV PRN (11:06)
[2021-11-22] MEDS ORDERED: DEXTROSE 50% 25 GM/50 ML SYRINGE IV PRN (11:06)
[2021-11-22] MEDS ORDERED: guaiFENesin/DM ER 600-30 MG TABLET PO PRN (11:06)
[2021-11-22] MEDS ORDERED: diphenhydrAMINE CAP 25 MG CAPSULE PO PRN (11:06)
[2021-11-22] MEDS ORDERED: GLUCAGON 1 MG VIAL IM PRN (11:06)
[2021-11-22] MEDS ORDERED: ONDANSETRON 4 MG/2 ML VIAL IV PRN (11:06)
[2021-11-22] MEDS ORDERED: BISACODYL 5 MG TABLET PO PRN (11:06)
[2021-11-22] MEDS ORDERED: NICOTINE 21 MG/24 HR PATCH TRANSDERM PRN (11:06)
[2021-11-22] MEDS ORDERED: MORPHINE 2 MG/1 ML SYRINGE IV PRN (11:06)
[2021-11-22] MEDS ORDERED: ZALEPLON 5 MG CAPSULE PO PRN (11:06)
[2021-11-22] MEDS ORDERED: PANTOPRAZOLE INJ 80 MG in SODIUM CHLORIDE 0.9% 100 ML IV ONE (11:15)
[2021-11-22] MEDS: INSULIN LISPRO 100 UNIT/ML SUBCUT SCH ×3 (12:15→23:41)
[2021-11-22] MEDS: PIPERACILLIN/TAZOBACTAM 3,375 MG in SODIUM CHLORIDE 0.9% 100 ML IV SCH ×2 (12:40→23:37)
[2021-11-22 14:08] LABS: Bilirubin,Urine Negative (Negative); Blood, Urine Negative (Negative); Glucose,Urine (UA) Negative (Negative); Hyaline Casts,Urine 1 /LPF (0-3); Ketones,Urine 5 mg/dL (Negative); Nitrite,Urine Negative (Negative); Protein,Urine Negative; RBC,Urine 1 /HPF (0-4); Squamous Epithelial Cell,Urine Occasional /HPF (0-10); Urine Appearance CLEAR (Clear); Urine Color Amber (Yellow); Urine Specific Gravity 1.017 (1.001-1.035)
[2021-11-22] MEDS: SODIUM CHLOR 0.9% KCL 20 MEQ 20 MEQ/1,000 ML BAG IV SCH (18:00)
[2021-11-22] MEDS: PANTOPRAZOLE INJ 200 MG in SODIUM CHLORIDE 0.9% 250 ML IV SCH (18:00)
[2021-11-22] MEDS: VANCOMYCIN INJ 1,000 MG in SODIUM CHLORIDE 0.9% 250 ML IV SCH (20:15)
[2021-11-22] MEDS: ALBUTEROL/IPRATROPIUM 3 ML NEB RESP TX SCH (21:46)
[2021-11-23] MEDS: ALBUTEROL/IPRATROPIUM 3 ML NEB RESP TX SCH ×4 (00:48→20:18)
[2021-11-23] MEDS: PIPERACILLIN/TAZOBACTAM 3,375 MG in SODIUM CHLORIDE 0.9% 100 ML IV SCH ×3 (04:27→21:35)
[2021-11-23 05:20] LABS: Basophils % 0.1 % (0.0-0.8); Eosinophils # 0.1 10*3/uL (0.0-0.87); Eosinophils % 0.7 % (0.00-10.9); Hematocrit 27.5 VOL% (35.7-47.0); Hemoglobin 8.5 GM/DL (12.0-16.0); Immature Granulocytes % 1.5 %; Immature Granulocytes Absolute 0.24 #; Lymphocytes # 0.6 10*3/uL (1.4-4.0); Lymphocytes % 3.6 % (21.3-54.2); Mean Corpuscular HGB Conc 30.9 GM/DL (32-36); Mean Corpuscular Volume 92.9 FL (87-102); Mean Platelet Volume 10.5 FL (9.6-12.0); Monocytes % 4.5 % (1.7-12.7); Neutrophils % 89.6 % (38.7-73.9); Platelet Count 356 T/CUMM (130-400); Red Blood Count 2.96 MC/CUMM (3.8-5.5); Red Cell Distribution Width 16.8 % (9.3-17.3); White Blood Count 15.6 T/CUMM (4-12)
[2021-11-23 05:41] LABS: Lymphocytes 4 % (20-55); Segmented Neutrophils 93 % (50-85); Total Cells Counted 100
[2021-11-23 05:42] LABS: Hypochromia Slight; Microcytosis Slight; Platelet Estimate Adequate
[2021-11-23 06:00] LABS: Calcium 8.2 MG/DL (8.5-10.1); Osmolality,Calculated 281.4 MOS/KG (273-304); Potassium 3.6 MMOL/L (3.5-5.1)
[2021-11-23] MEDS: INSULIN LISPRO 100 UNIT/ML SUBCUT SCH ×3 (06:18→17:39)
[2021-11-23] MEDS: VANCOMYCIN INJ 1,000 MG in SODIUM CHLORIDE 0.9% 250 ML IV SCH (17:39)
[2021-11-23] MEDS: PANTOPRAZOLE INJ 200 MG in SODIUM CHLORIDE 0.9% 250 ML IV SCH (18:39)
[2021-11-24] MEDS: SODIUM CHLOR 0.9% KCL 20 MEQ 20 MEQ/1,000 ML BAG IV SCH ×3 (01:45→17:42)
[2021-11-24] MEDS: INSULIN LISPRO 100 UNIT/ML SUBCUT SCH ×4 (01:45→18:43)
[2021-11-24] MEDS: ALBUTEROL/IPRATROPIUM 3 ML NEB RESP TX SCH ×4 (01:45→19:38)
[2021-11-24] MEDS: PIPERACILLIN/TAZOBACTAM 3,375 MG in SODIUM CHLORIDE 0.9% 100 ML IV SCH ×3 (05:01→22:01)
[2021-11-24] MEDS: LACTATED RINGERS 1,000 ML IV SCH (10:30)
[2021-11-24] MEDS ORDERED: PHENYLEPHRINE 1 MG/10 ML SYRINGE IV ONE (12:54)
[2021-11-24] MEDS ORDERED: propofoL 200 MG/20 ML VIAL IV ONE (12:56)
[2021-11-24] MEDS ORDERED: ETOMIDATE 20 MG/10 ML VIAL IV ONE (12:56)
[2021-11-24] MEDS ORDERED: LIDOCAINE 2% 5 ML VIAL ONE (12:56)
[2021-11-24 15:12] LABS: Basophils % 0.3 % (0.0-0.8); Eosinophils # 0.2 10*3/uL (0.0-0.87); Eosinophils % 1.2 % (0.00-10.9); Hematocrit 29.3 VOL% (35.7-47.0); Immature Granulocytes % 3.2 %; Immature Granulocytes Absolute 0.46 #; Lymphocytes # 0.5 10*3/uL (1.4-4.0); Lymphocytes % 3.2 % (21.3-54.2); Mean Corpuscular HGB Conc 30.7 GM/DL (32-36); Mean Corpuscular Volume 92.7 FL (87-102); Monocytes % 2.1 % (1.7-12.7); Platelet Count 408 T/CUMM (130-400); Red Blood Count 3.16 MC/CUMM (3.8-5.5); Red Cell Distribution Width 17.2 % (9.3-17.3); White Blood Count 14.4 T/CUMM (4-12)
[2021-11-24 15:35] LABS: Osmolality,Calculated 273.7 MOS/KG (273-304)
[2021-11-24 15:50] LABS: Band Neutrophils 5 % (0-10); Eosinophils 1 % (0-10); Segmented Neutrophils 93 % (50-85); Total Cells Counted 100
[2021-11-24 15:51] LABS: Anisocytosis Slight; Hypochromia 1+; Macrocytosis Slight; Microcytosis Slight; Platelet Estimate Normal; Polychromasia 1+
[2021-11-25] MEDS: ALBUTEROL/IPRATROPIUM 3 ML NEB RESP TX SCH ×4 (00:45→22:00)
[2021-11-25] MEDS: INSULIN LISPRO 100 UNIT/ML SUBCUT SCH ×4 (01:10→18:15)
[2021-11-25] MEDS: PIPERACILLIN/TAZOBACTAM 3,375 MG in SODIUM CHLORIDE 0.9% 100 ML IV SCH ×3 (05:40→22:02)
[2021-11-25 05:43] LABS: Basophils # 0.1 10*3/uL (0.0-0.2); Basophils % 0.4 % (0.0-0.8); Eosinophils # 0.2 10*3/uL (0.0-0.87); Eosinophils % 1.7 % (0.00-10.9); Hematocrit 29.8 VOL% (35.7-47.0); Hemoglobin 9.2 GM/DL (12.0-16.0); Immature Granulocytes % 3.8 %; Immature Granulocytes Absolute 0.53 #; Lymphocytes # 0.4 10*3/uL (1.4-4.0); Mean Corpuscular HGB Conc 30.9 GM/DL (32-36); Mean Corpuscular Volume 93.1 FL (87-102); Mean Platelet Volume 10.1 FL (9.6-12.0); Monocytes % 4.5 % (1.7-12.7); Neutrophils % 86.6 % (38.7-73.9); Platelet Count 405 T/CUMM (130-400); White Blood Count 13.9 T/CUMM (4-12)
[2021-11-25 06:02] LABS: Calcium 7.8 MG/DL (8.5-10.1); Osmolality,Calculated 278.3 MOS/KG (273-304); Potassium 3.2 MMOL/L (3.5-5.1)
[2021-11-25 06:06] LABS: Band Neutrophils 4 % (0-10); Hypochromia 1+; Lymphocytes 2 % (20-55); Microcytosis 1+; Myelocytes 2 %; Platelet Estimate Adequate; Segmented Neutrophils 90 % (50-85); Total Cells Counted 100
[2021-11-25] MEDS: PANTOPRAZOLE 40 MG VIAL IV SCH ×2 (09:25→22:03)
[2021-11-25] MEDS: SODIUM CHLOR 0.9% KCL 20 MEQ 20 MEQ/1,000 ML BAG IV SCH ×2 (11:00→11:36)
[2021-11-25] MEDS: LACTATED RINGERS 1,000 ML IV SCH (13:04)
[2021-11-26] MEDS: ALBUTEROL/IPRATROPIUM 3 ML NEB RESP TX SCH ×3 (00:24→13:35)
[2021-11-26] MEDS: PIPERACILLIN/TAZOBACTAM 3,375 MG in SODIUM CHLORIDE 0.9% 100 ML IV SCH ×2 (05:35→11:28)
[2021-11-26 06:02] LABS: Basophils % 0.3 % (0.0-0.8); Eosinophils # 0.2 10*3/uL (0.0-0.87); Eosinophils % 1.5 % (0.00-10.9); Hematocrit 31.5 VOL% (35.7-47.0); Hemoglobin 9.7 GM/DL (12.0-16.0); Immature Granulocytes % 2.7 %; Immature Granulocytes Absolute 0.43 #; Lymphocytes # 0.5 10*3/uL (1.4-4.0); Lymphocytes % 2.9 % (21.3-54.2); Mean Corpuscular HGB Conc 30.8 GM/DL (32-36); Mean Corpuscular Volume 93.2 FL (87-102); Mean Platelet Volume 10.1 FL (9.6-12.0); Monocytes % 3.7 % (1.7-12.7); Neutrophils % 88.9 % (38.7-73.9); Platelet Count 412 T/CUMM (130-400); Red Blood Count 3.38 MC/CUMM (3.8-5.5); Red Cell Distribution Width 16.4 % (9.3-17.3); White Blood Count 15.8 T/CUMM (4-12)
[2021-11-26 06:19] LABS: Calcium 7.8 MG/DL (8.5-10.1); Osmolality,Calculated 270.7 MOS/KG (273-304)
[2021-11-26 06:42] LABS: Anisocytosis 1+; Band Neutrophils 24 % (0-10); Lymphocytes 6 % (20-55); Myelocytes 1 %; Platelet Estimate Normal; Segmented Neutrophils 67 % (50-85); Total Cells Counted 100
[2021-11-26 06:43] LABS: Macrocytosis Slight; Smudge Cells Few
[2021-11-26] MEDS ORDERED: MAGNESIUM SULF RIDER 4 GM/100 ML PREMIX IV PRN (07:53)
[2021-11-26] MEDS ORDERED: MAGNESIUM SULF RIDER 2 GM/50 ML PREMIX IV PRN (07:53)
[2021-11-26] MEDS: INSULIN LISPRO 100 UNIT/ML SUBCUT SCH ×2 (09:25→11:38)
[2021-11-26] MEDS: PANTOPRAZOLE 40 MG VIAL IV SCH (09:26)
[2021-11-26] MEDS: SODIUM CHLOR 0.9% KCL 20 MEQ 20 MEQ/1,000 ML BAG IV SCH ×2 (09:26→11:10)
[2021-11-26] MEDS: LACTATED RINGERS 1,000 ML IV SCH (11:10)
[2021-11-26] MEDS: POTASSIUM BICARB EFFERVESCENT 20 MEQ TAB.EFF PO SCH ×2 (11:28→12:41)
[2021-11-26 11:59] VITALS: BP 125/54
== END 2021-11-26 14:58 | disposition home or self-care (01) | DRG 377 ==
LOC: EDBD → EDUNIT# → N.ED 08:26 → N.EDINP 11:06 → SUATTDRO 11:06 → N.3E 19:40
PROVIDERS: ADMIT Internal Medicine; ATTEND Internal Medicine